=== PATIENT | female | born 1960 | race African-American/Black ===

== ENCOUNTER 2021-04-24 13:16 | Emergency (ER) | payer OTHER ==
[~2021-04-24] VITALS: Ht 152.4 cm; Wt 88.2 kg
[2021-04-24] MEDS ORDERED: NOVOINJ SC (13:33)
[2021-04-24] MEDS ORDERED: ELIQ5TAB PO (13:33)
[2021-04-24] MEDS ORDERED: LANTINJ4 SC (13:33)
[2021-04-24] MEDS ORDERED: METF-839 PO ×2 (13:33→14:25)
[2021-04-24] MEDS ORDERED: PRAV40TA2 PO (14:25)
[2021-04-24] MEDS ORDERED: COLA100C5 PO (14:25)
[2021-04-24] MEDS ORDERED: TOPR100T PO (14:25)
[2021-04-24] MEDS ORDERED: LINZ290C PO (14:25)
[2021-04-24] MEDS ORDERED: JARD1TAB PO (14:25)
[2021-04-24] MEDS ORDERED: ASPI81TA26 PO (14:25)
[2021-04-24] MEDS ORDERED: PEPC40TA12 PO (14:25)
[2021-04-24] MEDS ORDERED: LASI40TA9 PO (14:25)
[2021-04-24] MEDS ORDERED: PROAAER10 INH (14:25)
[2021-04-24] MEDS ORDERED: ENTR1TAB7 PO (14:25)
[2021-04-24] MEDS ORDERED: SPIR-10 PO (14:25)
[2021-04-24] MEDS ORDERED: PERC10TA26 PO (14:25)
[2021-04-24] MEDS ORDERED: ONDANSETRON 4MG/2ML VIAL IV ONE (14:55)
[2021-04-24] MEDS ORDERED: MORPHINE 4 MG/ML 1ML VIAL/SYRINGE (J2270) IV PRN (14:55)
[2021-04-24 14:59] LABS: BASO % 0.1 % (0.0-1.0); EOS # 0.2 10^3/uL (0.0-0.5); EOS % 2.4 % (0.0-3.0); HEMATOCRIT 36.3 % (36.0-47.0); HEMOGLOBIN 11.5 g/dl (12.0-15.5); LYMPH # 1.7 10^3/uL (1.5-5.0); LYMPH % 20.5 % (24.0-44.0); MEAN CORPUSCULAR HEMOGLOBIN 28.1 pg (27.0-33.0); MEAN CORPUSCULAR HGB CONC 31.7 g/dl (32.0-36.5); MEAN CORPUSCULAR VOLUME 88.8 fl (80.0-96.0); MONO # 0.6 10^3/uL (0.0-0.8); MONO % 6.9 % (2.0-8.0); NEUTROPHILS # 5.6 10^3/uL (1.5-8.5); NEUTROPHILS % 69.7 % (36.0-66.0); PLATELET COUNT, AUTOMATED 505 10^3/uL (150-450); RED BLOOD COUNT 4.09 10^6/uL (4.00-5.40); WHITE BLOOD COUNT 8.1 10^3/uL (4.0-10.0)
[2021-04-24] MEDS ORDERED: LIDOCAINE 2% 5ML JELLY UROJET TOP ONE (15:00)
[2021-04-24 15:28] LABS: ALBUMIN 2.9 GM/DL (3.2-5.2); BILIRUBIN,DIRECT 0.1 MG/DL (0.0-0.2); BILIRUBIN,TOTAL 0.3 MG/DL (0.2-1.0); TOTAL PROTEIN 8.2 GM/DL (6.4-8.2)
[2021-04-24 20:11] LABS: RSV AMPLIFICATION NEGATIVE (NEGATIVE)
[2021-04-24] MEDS ORDERED: PERCOCET 5MG/325MG TAB PO ONE (20:50)
[2021-04-24] MEDS ORDERED: METOCLOPRAMIDE INJ 10MG/2ML VIAL (J2765 PER 1) IV ONE (21:40)
[2021-04-25] MEDS ORDERED: ACETAMINOPHEN 500 MG TAB PO ONE (06:50)
[2021-04-25 06:53] VITALS: BP 105/47
== END 2021-04-25 06:57 | disposition short-term general hospital (02) ==
LOC: M ED 13:16
DX: C79.51 Secondary malignant neoplasm of bone (principal); C50.919 Malignant neoplasm of unspecified site of unspecified female breast; M47.816 Spondylosis without myelopathy or radiculopathy, lumbar region; E11.9 Type 2 diabetes mellitus without complications; I25.2 Old myocardial infarction; I11.0 Hypertensive heart disease with heart failure; I50.9 Heart failure, unspecified; J45.909 Unspecified asthma, uncomplicated; Z86.73 Personal history of transient ischemic attack (TIA), and cerebral infarction without residual deficits; Z88.0 Allergy status to penicillin; Z88.8 Allergy status to other drugs, medicaments and biological substances; Z79.899 Other long term (current) drug therapy; Z79.4 Long term (current) use of insulin; Z79.01 Long term (current) use of anticoagulants
CPT/HCPCS: 51702; 72148; 80047; 80076; 81001; 85025; 87631; 96374; 96375; 99285; J2270; J2405; J2765